=== PATIENT | female | born 1985 | race Caucasian/White ===

== ENCOUNTER 2018-01-14 05:36 | Inpatient (IN) | payer OTHER ==
[2018-01-14] VITALS (19 sets, daily range): BP systolic 101–134; BP diastolic 59–83; PULSE 64–85; TEMP 97.7–98.4
[~2018-01-14] VITALS: Ht 175.4 cm; Wt 93.6 kg
[~2018-01-14 05:36] MED LIST: AMETHIA1 TAB; NAPROSYN 2250 MG/TAB PO; PREVACID 30MG30 M1 PO; TYLENOL 325MG325 MG PO; ZYRTEC 10MG10 MG PO
[2018-01-14 06:23] LABS: HEMOGLOBIN 11.9 g/dl (12.5-16.0); MEAN CELL VOLUME 90 fl (80.0-100.0); MEAN CORPUSCULAR HEMOGLOBIN 30 pg (27.0-31.0); MEAN CORPUSCULAR HGB CONC 33 g/dl (33.0-37.0); MEAN PLATELET VOLUME 13.1 fl (7.4-10.4); PLATELET COUNT 168 K/mm3 (130-400); RED BLOOD COUNT 4.01 M/mm3 (4.10-5.30); REDCELL DISTRIBUTION WIDTH-CV 13.4 % (11.5-14.5)
[2018-01-14 06:38] LABS: HEMATOCRIT 35.9 % (37.0-47.0)
[2018-01-14] MEDS ORDERED: PRENATAL1 TA7 PO (06:43)
[2018-01-14] MEDS ORDERED: COLACE 100100 MG/CAP PO (06:43)
[2018-01-14 07:33] LABS: BAND 7 % (0-10); LYMPHOCYTE 34 % (20.0-51.0); METAMYELOCYTE 1 % (0-0); NEUTROPHILS 55 % (42.0-75.2); PLATELET ESTIMATE NORMAL (NORMAL)
[2018-01-15] VITALS: BP 104/64; PULSE 73; TEMP 98
[2018-01-15 06:30] VITALS: BP 129/71; PULSE 74; TEMP 97.9
[2018-01-15 16:00] VITALS: BP 124/81; PULSE 76; TEMP 98.4
[2018-01-15 21:00] VITALS: BP 119/80; PULSE 74; TEMP 98.5
[2018-01-16 06:56] VITALS: BP 121/76; PULSE 76; TEMP 98
[2018-01-16] MEDS ORDERED: PERCOCET 325 MG1 TA2 PO (08:17)
[2018-01-16] MEDS ORDERED: MOTRIN 800800 MG/TAB PO (08:17)
== END 2018-01-16 16:25 | disposition home or self-care (01) | DRG 766 ==
LOC: OB 05:36 → LDR 08:22 → OB 01-16 16:25
PROVIDERS: Obstetrics & Gynecology
PROC: 10D00Z1 Extraction of Products of Conception, Low, Open Approach (ICD-10-PCS; principal; 2018-01-14)
DX: O82 Encounter for cesarean delivery without indication (principal); Z3A.39 39 weeks gestation of pregnancy; Z37.0 Single live birth
CPT/HCPCS: J0690; J1885; J2270; J2370; J2590; J7120

== ENCOUNTER → 2019-11-25 | Outpatient (CLI) | payer OTHER ==
[~2019-11-25] MED LIST changes: +COLACE 100100 MG/CAP PO; +MOTRIN 800800 MG/TAB PO; +PERCOCET 325 MG1 TA2 PO; +PRENATAL1 TA7 PO
== END ==
LOC: COL.ER 11-22 17:19 → COL.LAB 08:00
DX: R05 Cough (principal); Z20.828 Contact with and (suspected) exposure to other viral communicable diseases

== ENCOUNTER → 2020-01-12 | Outpatient (CLI) | payer OTHER | LOC: COL.ER 09:39 | DX: Z20.828 Contact with and (suspected) exposure to other viral communicable diseases (principal) ==

== ENCOUNTER → 2020-05-03 | Outpatient (CLI) | payer OTHER ==
[~2020-05-03] MED LIST changes: +PEPCID 20MG TAB20 MG
== END ==
LOC: ZCOL.LAB 08:00
DX: Z20.828 Contact with and (suspected) exposure to other viral communicable diseases (principal)

== ENCOUNTER 2020-05-09 05:26 | Inpatient (IN) | payer OTHER ==
[2020-05-09] VITALS (19 sets, daily range): BP systolic 80–125; BP diastolic 50–87; PULSE 62–91; TEMP 97.4–98.1
[~2020-05-09] VITALS: Ht 175.3 cm; Wt 94.1 kg
[~2020-05-09 05:26] MED LIST changes: -PEPCID 20MG TAB20 MG
--- NOTE | 2020-05-09 05:40 | NUR ---
Patient ambulatory to room 210 for a scheduled repeat . Patient changed into gown. EFMs explained and applied. VSS. Consents signed. IV started in left wrist with labs drawn from site, LR bolus infusing. Plan of care reviewed. Patient and spouse oriented to room and call light.
[2020-05-09 05:52] LABS: BASO # 0.1 (0.0-0.2); BASO % 0.7 % (0.0-2.0); EOS # 0.2 (0.0-0.7); EOS % 1.6 % (0-4.0); GRAN # 7.6 (1.4-6.5); GRAN % 66.8 % (42.2-75.2); LYMPH # 2.4 (1.2-3.4); MEAN CELL VOLUME 87 fl (80.0-100.0); MEAN CORPUSCULAR HEMOGLOBIN 28 pg (27.0-31.0); MEAN CORPUSCULAR HGB CONC 33 g/dl (33.0-37.0); MEAN PLATELET VOLUME 12.5 fl (7.4-10.4); MONO % 8.9 % (1.7-9.3); PLATELET COUNT 216 K/mm3 (130-400); RED BLOOD COUNT 4.24 M/mm3 (4.10-5.30); REDCELL DISTRIBUTION WIDTH-CV 14.1 % (11.5-14.5)
[2020-05-09] MEDS ORDERED: PEPCID 20MG TAB20 MG (06:18)
[2020-05-09 06:22] LABS: HEMATOCRIT 36.7 % (37.0-47.0)
--- NOTE | 2020-05-09 06:32 | NUR ---
PT ADMITTED FOR REPEAT . SPOUSE WITH PT. ORIENTED TO PLAN OF CARE. FHT'S IN THE 130'S WITH MODERATE VARIABILITY AND ACCELS. IV STARTED BY JUN MARC RN, IN RIGHT WRIST WITH LR INFUSING WITHOUT DIFFICULTY. CONSENTS SIGNED. ASSESSMENT COMPLETED. QUESTIONS ANSWERED.
--- NOTE | 2020-05-09 08:06 | NUR ---
PT AMBULATED TO OR AT 0715. SEATED ON BED POSITIONED FOR SPINAL PLACEMENT BY ALCIDES SHEARER. SPINAL PLACED AND PT POSITIONED LYING DOWN WITH WEDGE UNDER RIGHT HIP. FHT'S 141. MURILLO PLACED WITH CLEAR YELLOW URINE RETURNED. SCD'S ON, CATUERY PAD TO RIGHT THIGH. DURAPREP TO ABDOMEN. DELIVERY OF FEMALE INFANT AT [address] SEPULVEDA AND DR SEN.
--- NOTE | 2020-05-09 08:20 | NUR ---
PT ADMITTED TO PACU. AWAKE AND ALERT. CAN MOVE UPPER EXTREMITIES BUT NOT LOWER AT THIS TIME DUE TO SPINAL BLOCK. ASSESSMENT COMPLETED. DENIES PAIN. FUNDUS FIRM WITH MINIMAL BLEEDING OBSERVED.
--- NOTE | 2020-05-09 08:55 | NUR ---
PT TO ROOM AFTER DISCHARGE FROM PACU. PT AWAKE AND ALERT. DENIES PAIN. STILL IS SHAKING AND HAS BEEN SHAKING SINCE ADMIT TO PACU. WILL GIVE DEMEROL. ORIENTED TO PLAN OF CARE. BREAKFAST TRY GIVEN. FUNDUS FIRM WITH MINIMAL BLEEDING OBSERVED.
--- NOTE | 2020-05-09 09:25 | NUR ---
PT REPORTS SHAKING IS MUCH BETTER. FEELING PAIN WITH FUNDAL MASSAGE AND RANKING IT A 4/10. WILL GIVE PERCOCET.
--- NOTE | 2020-05-09 10:25 | NUR ---
PT STARTING TO BE ABLE TO MOVE LEGS A LITTLE MORE AND IS FEELING CRAMPING. RESTING IN BED HOLDING BABY
--- NOTE | 2020-05-09 15:20 | NUR ---
PT WITH FULL RETURN OF FEELING IN HER LEGS. AMBULATES WITH STANDBY ASSIST TO BATHROOM. MURILLO DISCONTINUED. PERICARE PERFORMED. NEW LEONARD PAD IN PLACE AND MESH UNDERWEAR ON. TRANSFERRED TO ROOM 208 PT WANTS TO BE IN A REGULAR BED INSTEAD OF A HOSPITAL BED.
[2020-05-10 00:45] VITALS: BP 112/79; PULSE 73; TEMP 98.4
[2020-05-10 05:00] VITALS: BP 100/62; PULSE 63; TEMP 98.4
[2020-05-10 08:01] VITALS: BP 112/82; PULSE 76; TEMP 97.8
[2020-05-10] MEDS ORDERED: MOTRIN 800800 MG/TAB PO (09:02)
[2020-05-10] MEDS ORDERED: PERCOCET 325 MG1 TA2 PO (09:02)
--- NOTE | 2020-05-10 09:08 | NUR ---
Initial visit; Parents thanked Bag Washer for offering congratulations and God's blessings for the of their daughter. Bag Washer thanked Family for choosing [facility].
[2020-05-10 15:08] VITALS: BP 116/62; PULSE 76; TEMP 98.4
[2020-05-10 20:30] VITALS: BP 114/70; PULSE 62; TEMP 98.3
[2020-05-11 08:30] VITALS: BP 103/67; PULSE 66; TEMP 97.8
== END 2020-05-11 10:30 | disposition home or self-care (01) | DRG 788 ==
LOC: OB 05:26
PROVIDERS: ADMIT Obstetrics & Gynecology
PROC: 10D00Z1 Extraction of Products of Conception, Low, Open Approach (ICD-10-PCS; principal; 2020-05-09)
DX: O34.211 Maternal care for low transverse scar from previous cesarean delivery (principal); Z3A.39 39 weeks gestation of pregnancy; Z37.0 Single live birth
CPT/HCPCS: J0690; J1100; J1885; J2175; J2370; J2405; J2590; J7120

== ENCOUNTER → 2024-03-27 | Outpatient (CLI) | payer OTHER ==
[~2024-03-27] MED LIST changes: +PEPCID 20MG TAB20 MG
== END ==
LOC: MC.RAD 09:25
DX: Z12.31 Encounter for screening mammogram for malignant neoplasm of breast (principal); N64.89 Other specified disorders of breast